=== PATIENT | female | born 1980 | race African-American/Black ===

== ENCOUNTER 2020-02-15 17:10 | Observation (INO) | payer SELFPAY ==
[2020-02-15 17:54] LABS: #Basophils 0.1 thou/uL (0.0-0.2); #Eosinphils 0.2 thou/uL (0.0-0.7); #Lymphocytes 2.2 thou/uL (1.20-3.40); #Monocytes 0.4 thou/uL (0.11-0.59); #Neutrophils 3.6 thou/uL (1.40-6.50); %Basophils 0.8 % (0.0-1.0); %Eosinophils 3.6 % (0.0-10.0); %Lymphocytes 34.3 % (21.0-51.0); %Monocytes 5.9 % (0.0-10.0); %Neutrophils 55.5 % (42.0-75.0); Hemoglobin 12.3 g/dL (12.0-16.0); Mean Corpuscular HGB CONC 33.4 g/dL (32.0-36.0); Mean Corpuscular Hemoglobin 24.4 pg (27.0-31.0); Mean Corpuscular Volume 73.1 fL (78.0-98.0); Mean Platelet Volume 10.7 fL (7.4-10.4); Platelet Count 191 thou/uL (130-400); Red Blood Cell (RBC) Count 5.02 mill/uL (4.20-5.40); White Blood Cell (WBC) Count 6.5 thou/uL (4.8-10.8)
[2020-02-15 18:10] LABS: Hypochromia SLIGHT = 6-15 cells (100X) (0-5/hpf); MDiff Complete? YES; Microcytosis SLIGHT = 6-15 cells (100X) (0-5/hpf); Ovalocytes SLIGHT = 2-5 cells (100X) (0-1/hpf); Platelet Morphology Comment Appears Adequate; Polychromasia SLIGHT = 2-3 cells (100X) (0-2/hpf)
[2020-02-15 18:16] LABS: ALT (SGPT) 24 U/L (8-55); AST (SGOT) 23 U/L (5-34); Albumin 3.9 g/dL (3.5-5.0); Alkaline Phosphatase 106 U/L (40-110); Anion Gap 14 mmol/L (10-20); BUN (Urea Nitrogen) 9 mg/dL (7.0-18.7); Bilirubin, Total 0.2 mg/dL (0.2-1.2); Calc. Creatinine Clearance 0 mL/min (70-130); Calcium 9.1 mg/dL (7.8-10.44); Carbon Dioxide 22 mmol/L (22-29); Chloride 105 mmol/L (98-107); Estimated GFR-MDRD 54; Globulin 3.3 g/dL (2.4-3.5); Glucose 451 mg/dL (70-105); Glucose POC Confirmation 451 mg/dl (70-105); Protein, Total 7.2 g/dL (6.0-8.3); Sodium 137 mmol/L (136-145)
[2020-02-15] MEDS ORDERED: Nitroglycerin 2% Ointment 1 INCH/1 GM Packet ONE (19:48)
[2020-02-15] MEDS ORDERED: Labetalol HCl 100 MG/20 ML VIAL ONE (19:48)
--- NOTE | 2020-02-15 19:52 | RAD ---
CHEST ONE VIEW: 02/15/20 HISTORY: Hypertension. Tachycardia. FINDINGS: Normal cardiac silhouette. The pulmonary vessels and hilum are normal. Costophrenic angles are clear. No consolidation or mass. No pneumothorax or acute osseous abnormality. IMPRESSION: No acute cardiopulmonary process. POS: PPP
[2020-02-15] MEDS ORDERED: Insulin Regular 300 UNITS/3 ML VIAL ONE (20:18)
[2020-02-15] MEDS ORDERED: Acetaminophen 500 MG TAB ONE (20:18)
--- NOTE | 2020-02-15 20:56 | PDOC.FPRHP ---
- History of Present Illness Chief Complaint: Feeling Unwell History of Present Illness: Pt is 39 y/o F who presented to ED today after checking her BG and BP to show that her BG was 394 and her BP was 239/103. She stated that she started feeling "unwell" two days ago and wasn't able to figure out why. When she realized her BP was high it prompted her to come to the ED. She states that she has been on Novolin N for her type 1 DM because she was told by [employer] to stop taking her meal time insulin due to hypoglycemic episodes. Patient states that she was released from [facility] in December after serving an 11 year sentence and prior to that she was on Novolog 70/30, afterwards she was put on Novolin-N and Novolin-R and patient states that her BG has never been under control. She also states that she has not been diagnosed with HTN but is prescribed losartan and guifesin for her headaches and takes these medications PRN. She was having "chest pressure" prior to coming to the ED, however it was non radiating. She denied any stroke like symptoms. She denied headache or dizziness or blurry vision. ED Course: s/p 1 10mg dose of IV labetolol, 1L NS, nitro, 1g tylenol, 10 U regular insulin - Allergies/Adverse Reactions Allergies Allergy/AdvReac Type Severity Reaction Status Date / Time aspirin Allergy Verified 02/16/20 01:32 - Home Medications Medication Instructions Recorded Confirmed Type Divalproex [Depakote] 150 mg PO BID 02/15/20 02/15/20 History [place] Carbonate 300 mg PO BID 02/15/20 02/15/20 History Losartan Potassium 100 mg PO QAM 02/15/20 02/15/20 History Venlafaxine HCl [Effexor] 75 mg PO DAILY 02/15/20 02/15/20 History guaiFENesin [Mucinex] 600 mg PO Q12HR 02/15/20 02/15/20 History levETIRAcetam [Keppra] 150 mg PO BID 02/15/20 02/15/20 History - History PMHx: -type 1 DM -Bipolar disorder -Asthma -Seizure disorder PSHx: -none FHx: -Mom and Dad: DM -Cancer: brain; mother Social: [facility] -no drug, etoh, tobacco use - Review of Systems General: denies: fever/chills, weight/appetite/sleep changes, night sweats Eyes: denies: eye pain ENT: denies: nasal congestion, rhinorrhea Respiratory: denies: cough, congestion, shortness of breath Cardiovascular: reports: chest pain. denies: palpitation Gastrointestinal: denies: nausea, vomiting, diarrhea, constipation, abdominal pain Genitourinary: denies: incontinence, dysuria, polyuria, discharge Skin: denies: rashes Musculoskeletal: denies: pain, tenderness Neurological: denies: numbness, syncope, weakness - Vital signs BP: 168/74, MAP: 105, Pulse: 74, Resp: 15, Pain: 0, O2 sat: 98 on (Room Air), Time: 02/15/2020 20:33. - Physical Exam Constitutional: NAD, awake, alert and oriented, well developed HEENT: normocephalic and atraumatic, PERRLA Neck: supple Chest: other (tender to palpation) Heart: RRR, normal S1/S2, no murmurs/rubs/gallops Lungs: CTAB, no respiratory distress, good air movement, no rales/rhonchi, no wheezing Abdomen: soft, non-tender, bowel sounds present, no masses/distention Musculoskeletal: normal structure, normal tone, ROM grossly normal Neurological: no focal deficit Psychiatric: normal mood and affect, good judgment and insight, intact recent and remote memory FMR H&P: Results - Labs Result Diagrams: 02/16/20 03:51 02/15/20 17:38 Lab results: WBC 6.5 thou/uL (4.8-10.8) 02/15/20 17:38 Hgb 12.3 g/dL (12.0-16.0) 02/15/20 17:38 Hct 36.7 % (36.0-47.0) 02/15/20 17:38 MCV 73.1 fL (78.0-98.0) L 02/15/20 17:38 Plt Count 191 thou/uL (130-400) 02/15/20 17:38 Neutrophils % 55.5 % (42.0-75.0) 02/15/20 17:38 Sodium 137 mmol/L (136-145) 02/15/20 17:38 Potassium 4.0 mmol/L (3.5-5.1) 02/15/20 17:38 Chloride 105 mmol/L (98-107) 02/15/20 17:38 Carbon Dioxide 22 mmol/L (22-29) 02/15/20 17:38 BUN 9 mg/dL (7.0-18.7) 02/15/20 17:38 Creatinine 1.11 mg/dL (0.6-1.1) H 02/15/20 17:38 Glucose 451 mg/dL (70-105) H 02/15/20 17:38 Calcium 9.1 mg/dL (7.8-10.44) 02/15/20 17:38 Total Bilirubin 0.2 mg/dL (0.2-1.2) 02/15/20 17:38 AST 23 U/L (5-34) 02/15/20 17:38 ALT 24 U/L (8-55) 02/15/20 17:38 Alkaline Phosphatase 106 U/L (40-110) 02/15/20 17:38 Creatine Kinase 461 U/L (29-168) H 02/15/20 19:05 Serum Total Protein 7.2 g/dL (6.0-8.3) 02/15/20 17:38 Albumin 3.9 g/dL (3.5-5.0) 02/15/20 17:38 - EKG Interpretation EKG: normal sinus rhythm - Radiology Interpretation Chest x-ray Status: image reviewed by me, report reviewed by me (no acute cardiopulmonary process) FMR H&P: A/P - Plan ##Hypertensive Urgency -SBP 200s in ED -s/p 1 10mg dose of IV labetolol, 1L NS, nitro, 1g tylenol, 10 U regular insulin -EKG neg -CXR neg -troponin neg x2 -labetolol 10mg PRN -restarted losartan home medication -UDS pending -TSH 1.66 ##Hyperglycemia -Pt is type 1 DM, presenting with BG 451 -BHB 0.16 -on Novolin-N 55 U am 45 U pm -SSI -A1C 8.4 ##Bipolar disorder -aware -restarted home meds ##Seizure disorder -aware -restarted home meds ##Asthma, mild intermittent -aware -pt states she is on ProAir at home CODE: FULL DIET: CC PCP: Ramona Dispo: admitted to telemetry for monitoring. will continue to monitor BP and BG. FMR H&P: Upper Level - Plan Date/Time: 02/15/202053 Ms Garcia is a 39yo female with pmh of HTN and recent incarceration who pres ents with elevated blood sugar 390 at home and high BP. Here her blood glucose was 451 and BP 247/132. She is out of her home med Losartan 25mg. Initially with minimal chest pain which has resolved. Denies SOB, vision changes, CORLEY. PE: General: NAD CV: RRR no murmurs Pulm: Diffuse rhonchi, coughs with deep inspiration. Belly breathing Extremities: No edema A/P: Hypertensive Urgency -Initial BP 247/132, MAP 170. No evidence of end organ damage. Initial trop neg. CXR wnl. s/p 1in Nitro, Labetalol 10mg x2. Ordered UDS, TSH and Lipids. Will restart home meds with PRN antihypertensives available. Continue to trend trops. Admit to tele Hyperglycemia -Glucose 451. No evidence of DKA or HHS. Received 10U Humulin in ED. Ordered A1c. Will start Metformin and Lantus as well as SSI. CC diet. I, Linsey Griffith, have evaluated this patient and agree with findings/plan as outlined by global marketing intern resident. Pertinent changes/additions are listed here. Addendum - Attending - Attending Attestation Date/Time: 02/16/20 [id number] I personally evaluated the patient and discussed the management with Dr. Ware I agree with the History, Examination, Assessment and Plan documented above with any addition or exceptions noted below.
[2020-02-15] MEDS ORDERED: Dextrose 5% in Water 1,000 ML IV PRN (21:37)
[2020-02-15] MEDS ORDERED: Acetaminophen 325 MG TAB PO PRN (21:37)
[2020-02-15] MEDS ORDERED: Insulin Regular 300 UNITS/3 ML VIAL SC PRN (21:37)
[2020-02-15] MEDS ORDERED: Ondansetron PF 4 MG/2 ML Vial IVP PRN (21:37)
[2020-02-15] MEDS ORDERED: Dextrose 50% Abboject 50 ML SYRINGE SLOW IVP PRN (21:37)
[2020-02-15] MEDS ORDERED: Ondansetron ODT 4 MG TAB PO PRN (21:37)
[2020-02-15 21:42] LABS: Troponin I Less than 0.010 ng/mL (< 0.028)
[2020-02-15 22:38] LABS: Hemoglobin A1c 8.4 % (4.0-6.0)
[2020-02-15] MEDS ORDERED: Labetalol HCl 100 MG/20 ML VIAL SLOW IVP PRN (23:49)
[2020-02-16 01:28] LABS: Bacteria/HPF None Seen HPF (None Seen); RBC/HPF 0-3 HPF (0-3); Squamous Epithelial 0-3 HPF (0-3); WBC/HPF 0-3 HPF (0-3)
[2020-02-16 01:35] LABS: Troponin I Less than 0.010 ng/mL (< 0.028)
[2020-02-16 01:45] LABS: Amphetamine Not Detected (NotDetected); Barbiturates Screen Not Detected (NotDetected); Benzodiazepine Screen Not Detected (NotDetected); Bilirubin Negative (Negative); Blood, Urine Negative (Negative); Clarity Clear (Clear); Cocaine Metabolite Screen Not Detected (NotDetected); Glucose, Urine (Dipstick) Greater than 1000 mg/dL (Negative); Ketone, Urine Negative (Negative); Leukocyte Negative Leu/uL (Negative); Medtox Control Line Valid? VALID (VALID); Medtox Reader # READER 1; Methadone Not Detected (NotDetected); Methamphetamine Not Detected (NotDetected); Nitrite Negative (Negative); Opiate Screen Not Detected (NotDetected); Oxycodone Screen Not Detected (NotDetected); Phencyclidine (PCP) Not Detected (NotDetected); Pregnancy Test - Urine (BHCG) Negative (Negative); Pregu Control Background? CLEAR/WHITE (CLR/WHITE); Pregu Control Bar Appear? YES (CONTROL BAR); Protein, Urine (Dipstick) Negative (Neg-Trace); Specific Gravity 1.036 (1.002-1.036); Specific Gravity, Urine 1.036 (1.002-1.036); THC/Cannabinoid Screen Not Detected (NotDetected); Tricyclic Screen Not Detected (NotDetected); Urobilinogen Normal mg/dL (Less than 2); pH, Urine 5.5 (5.0-9.0)
[2020-02-16 04:13] LABS: #Eosinphils 0.2 thou/uL (0.0-0.7); #Lymphocytes 2.6 thou/uL (1.20-3.40); #Monocytes 0.4 thou/uL (0.11-0.59); #Neutrophils 2.8 thou/uL (1.40-6.50); %Basophils 0.2 % (0.0-1.0); %Eosinophils 2.9 % (0.0-10.0); %Monocytes 5.8 % (0.0-10.0); Hemoglobin 11.3 g/dL (12.0-16.0); Mean Corpuscular HGB CONC 32.7 g/dL (32.0-36.0); Mean Corpuscular Volume 73.4 fL (78.0-98.0); Mean Platelet Volume 10.5 fL (7.4-10.4); Platelet Count 179 thou/uL (130-400); Red Blood Cell (RBC) Count 4.72 mill/uL (4.20-5.40); White Blood Cell (WBC) Count 5.9 thou/uL (4.8-10.8)
[2020-02-16 04:35] LABS: Cardiac Risk 4.2 (Less than 4.5)
--- NOTE | 2020-02-16 05:55 | PDOC.FM ---
- Subjective Subjective: Patient feels much better this morning, but feels tired. Denies CORLEY, vision changes, N/V, SOB, CP. She is ready to eat breakfast. - Objective MAR Reviewed: Yes Result Diagrams: 02/16/20 03:51 02/16/20 03:51 Phys Exam - Physical Examination Constitutional: NAD HEENT: moist MMs Neck: full ROM Respiratory: no wheezing, clear to auscultation bilateral Cardiovascular: RRR Gastrointestinal: soft, non-tender Musculoskeletal: pulses present Neurological: moves all 4 limbs Psychiatric: normal affect, A&O x 3 Skin: normal turgor Dx/Plan - Plan Plan: ##Hypertensive Urgency -SBP 200s in ED -s/p 1 10mg dose of IV labetolol, 1L NS, nitro, 1g tylenol, 10 U regular insulin -EKG neg -CXR neg -troponin neg x2 -labetolol 10mg PRN -restarted losartan home medication, added amlodipine -UDS negative -TSH 1.66 ##Hyperglycemia -Pt is type 1 DM, presenting with BG 451 -BHB 0.16 -on Novolin-N 55 U am 45 U pm , transition to 70/30 on discharge -SSI -A1C 8.4 -lipid panel WNL but will have patient follow up outpatient and initiate statin given other risk factors ##Bipolar disorder -aware -restarted home meds ##Seizure disorder -aware -restarted home meds ##Asthma, mild intermittent -aware -pt states she is on ProAir at home CODE: FULL DIET: CC PCP: Ramona Fluids: KVO Dispo: admitted to telemetry for monitoring. will continue to monitor BP and BG. Anticipated LOS < 48 hours
[2020-02-16 07:39] VITALS: BMI 37.2
[2020-02-16 07:48] LABS: Anion Gap 14 mmol/L (10-20); BUN (Urea Nitrogen) 8 mg/dL (7.0-18.7); Calc. Creatinine Clearance 140 mL/min (70-130); Calcium 8.6 mg/dL (7.8-10.44); Carbon Dioxide 23 mmol/L (22-29); Chloride 108 mmol/L (98-107); Estimated GFR-MDRD 80; Glucose 270 mg/dL (70-105); Potassium 3.8 mmol/L (3.5-5.1); Sodium 141 mmol/L (136-145)
[2020-02-16] MEDS ORDERED: NPH, Human Insulin Isophane 300 UNIT/3 ML VIAL SC SCH ×2 (09:00→21:00)
[2020-02-16] MEDS ORDERED: levETIRAcetam 500 mg/5 ml Oral Solution PO SCH (09:00)
[2020-02-16] MEDS ORDERED: Enoxaparin Sodium 40 MG/0.4 ML SYRINGE SC SCH (09:00)
[2020-02-16] MEDS ORDERED: Valproate Sodium 250 mg/5 ml UD Cup PO SCH (09:00)
[2020-02-16] MEDS ORDERED: Losartan 25 MG TAB PO SCH (09:00)
[2020-02-16] MEDS ORDERED: Amlodipine 5 MG TAB PO SCH (09:00)
[2020-02-16] MEDS ORDERED: Amlodipine 5 MG TAB ONE (09:43)
[2020-02-16] MEDS ORDERED: Enoxaparin Sodium 40 MG/0.4 ML SYRINGE ONE (10:24)
[2020-02-16] MEDS ORDERED: levETIRAcetam 500 MG TAB PO SCH (11:00)
[2020-02-16] MEDS ORDERED: HumaLOG 300 UNITS/3 ML VIAL ONE (11:23)
[2020-02-16 12:45] VITALS: BP 194/95; TEMP 98
[2020-02-16 15:33] LABS: SARS-CoV-2 MS2 Positive; SARS-CoV-2 N Gene Negative; SARS-CoV-2 S Gene Negative; SARS-CoV-2 by NAA Not Detected (NotDetected); SARS-CoV-2 orf1ab Negative
--- NOTE | 2020-02-17 10:40 | DIS ---
DATE OF ADMISSION: 02/15/2020 DATE OF DISCHARGE: 02/16/2020 RESIDENT: Sara Enriquez MD, PGY1. ADMITTING ATTENDING: Tyler Vidales MD DISCHARGE ATTENDING: Tyler Vidales MD CONSULTS: None. PROCEDURES: Include a chest x-ray on 02/15/2020, which showed no acute cardiopulmonary process. PRIMARY DIAGNOSIS: Hypertensive urgency. SECONDARY DIAGNOSES: 1. Hyperglycemia. 2. Bipolar disorder. 3. Seizure disorder. 4. Asthma. DISCHARGE MEDICATIONS: 1. Amlodipine 5 mg p.o. daily. 2. Novolin 70/30, 55 units subcu every morning. 3. Novolin 70/30, 45 units subcu every evening. 4. [place] carbonate 300 mg p.o. b.i.d. 5. Effexor 75 mg p.o. daily. 6. Depakote 150 mg p.o. b.i.d. 7. Keppra 1000 mg p.o. b.i.d. 8. Mucinex 600 mg p.o. every 12 hours. 9. Losartan 100 mg p.o. every morning. DISCONTINUED MEDICATIONS: None. HISTORY OF PRESENT ILLNESS/HOSPITAL COURSE: The patient is a 39-year-old female, who presented to the ED after checking her blood sugar and blood pressure at home. Her blood glucose was 394. Her blood pressure was 239/103. She states that she started to feel unwell two days prior and was not able to figure out why. When she realized her blood pressure was high, that is what prompted her to come to the emergency room. She states she has been on Novolin N for type 1 diabetes because she was told by [employer] to stop taking her mealtime insulin due to hypoglycemic episode. The patient was recently released from incarceration in December after 11-year sentence. Prior to that, she was on NovoLog 70/30. Ever since she has been on Novolin N and Novolin R, the patient says that her blood sugars have never been under control. She says that she has never been diagnosed with hypertension, but has losartan to take whenever she has a headache. The patient endorses chest pain prior to coming to the emergency room, that was nonradiating. She denied any stroke-like symptoms. She denied headache, dizziness, or blurry vision. In the ER, the patient got 10 mg labetalol, 1 L of fluids, nitroglycerin, 1 g of Tylenol, and 10 units of regular insulin. The patient's blood pressure began to trend down from 239 systolic to 180 systolic down to 166/95. The patient said she felt much better and was just tired. She denies any chest pain, nausea, vomiting, abdominal pain, after being treated in the ER. The patient says she is ready to eat and go home. She is not established with a primary care doctor, but she is encouraged to follow up with Katty Salomon. DISPOSITION: Stable. DISCHARGE INSTRUCTIONS: 1. Location: Home. 2. Diet: Heart healthy diet. 3. Activities: Activity as tolerated. 4. Followup: Follow up with Dr. Enriquez at [facility] within the week. Job ID: [id number] [id number]
== END 2020-02-16 12:40 | disposition home or self-care (01) ==
LOC: ERS 17:10 → ERHOLD 21:02
PROVIDERS: ADMIT Internal Medicine; ATTEND Internal Medicine
DX: I16.0 Hypertensive urgency (principal); E10.65 Type 1 diabetes mellitus with hyperglycemia; F31.9 Bipolar disorder, unspecified; G43.909 Migraine, unspecified, not intractable, without status migrainosus; J45.20 Mild intermittent asthma, uncomplicated; I10 Essential (primary) hypertension; Z79.4 Long term (current) use of insulin; Z79.899 Other long term (current) drug therapy; Z88.6 Allergy status to analgesic agent; Z20.828 Contact with and (suspected) exposure to other viral communicable diseases
CPT/HCPCS: 36415; 36416; 71045; 80048; 80053; 80061; 80306; 81003; 81015; 81025; 82010; 82550; 82947; 83036; 84443; 84484; 85007; 85025; 85027; 87635; 93005; 96372; 96376; G0378; J1650; J1815; U0003